=== PATIENT | female | born 1995 | race Caucasian/White ===

== ENCOUNTER 2016-10-22 11:16 | Emergency (ER) | payer OTHER ==
[~2016-10-22] VITALS: Ht 172.7 cm; Wt 81.8 kg
[2016-10-22 11:19] VITALS: TEMP 97.4
[2016-10-22] MEDS ORDERED: SYNTHROID0.075 MG/T PO (11:38)
[2016-10-22] MEDS ORDERED: NOVLOG (11:38)
[2016-10-22] MEDS ORDERED: GLUCOPHAGE XR750 MG PO (11:38)
[2016-10-22 12:15] LABS: BASO # 0.1 (0.0-0.2); EOS # 0.2 (0.0-0.7); EOS % 2.3 % (0-4.0); GRAN # 5.2 (1.4-6.5); HEMATOCRIT 43.1 % (37.0-47.0); HEMOGLOBIN 14.5 g/dl (12.5-16.0); LYMPH # 1.9 (1.2-3.4); LYMPH % 23.6 % (20.0-51.0); MEAN CELL VOLUME 84 fl (80.0-100.0); MEAN CORPUSCULAR HEMOGLOBIN 28 pg (27.0-31.0); MEAN CORPUSCULAR HGB CONC 34 g/dl (33.0-37.0); MEAN PLATELET VOLUME 10.5 fl (7.4-10.4); MONO # 0.8 (0.1-0.6); MONO % 9.4 % (1.7-9.3); PLATELET COUNT 332 K/mm3 (130-400); RED BLOOD COUNT 5.13 M/mm3 (4.10-5.30); REDCELL DISTRIBUTION WIDTH-CV 13.6 % (11.5-14.5); WHITE BLOOD COUNT 8.2 K/mm3 (4.8-10.8)
[2016-10-22 12:30] LABS: ADJUSTED CALCIUM 9.2 mg/dL (8.4-10.2); ALBUMIN 4.2 gm/dL (3.5-5.0); BILIRUBIN,TOTAL 0.7 mg/dL (0.0-1.0); CALCIUM 9.4 mg/dL (8.4-10.2); CREATININE, serum 0.61 mg/dL (0.52-1.25); POTASSIUM 3.9 mmol/L (3.4-5.0); TOTAL PROTEIN 7.6 gm/dL (6.4-8.2)
[2016-10-22 14:41] VITALS: BP 134/89; PULSE 82
== END 2016-10-22 14:42 | disposition home or self-care (01) ==
LOC: COL.ER 11:16
PROVIDERS: Emergency Medicine
DX: R42 Dizziness and giddiness (principal); E10.9 Type 1 diabetes mellitus without complications; Z79.4 Long term (current) use of insulin
CPT/HCPCS: J7030

== ENCOUNTER → 2016-10-23 | Outpatient (CLI) | payer OTHER ==
[~2016-10-23] MED LIST: GLUCOPHAGE XR750 MG PO; NOVLOG; SYNTHROID0.075 MG/T PO; [UNRECOGNIZED DRUG - SUPPLY]
== END ==
LOC: COL.LAB 07:39
DX: Z01.89 Encounter for other specified special examinations (principal)

== ENCOUNTER 2016-11-14 00:47 | Emergency (ER) | payer OTHER ==
[~2016-11-14] VITALS: Ht 175.3 cm; Wt 80.5 kg
[~2016-11-14 00:47] MED LIST changes: -[UNRECOGNIZED DRUG - SUPPLY]
[2016-11-14 00:56] VITALS: TEMP 97.7
[2016-11-14 02:01] VITALS: BP 124/92; PULSE 70
[2016-11-14] MEDS ORDERED: [UNRECOGNIZED DRUG - SUPPLY] (02:04)
== END 2016-11-14 02:05 | disposition home or self-care (01) ==
LOC: COL.ER 00:47
DX: R20.2 Paresthesia of skin (principal); R42 Dizziness and giddiness; E11.9 Type 2 diabetes mellitus without complications; E03.9 Hypothyroidism, unspecified; E28.2 Polycystic ovarian syndrome; Z96.41 Presence of insulin pump (external) (internal)

== ENCOUNTER → 2016-11-23 | Outpatient (CLI) | payer OTHER ==
[~2016-11-23] MED LIST changes: +[UNRECOGNIZED DRUG - SUPPLY]
== END ==
LOC: COL.RAD 07:30
DX: K76.0 Fatty (change of) liver, not elsewhere classified (principal); R16.0 Hepatomegaly, not elsewhere classified

== ENCOUNTER → 2016-12-02 | Outpatient (CLI) | payer OTHER | LOC: COL.RAD 08:10 | DX: R10.11 Right upper quadrant pain (principal) | CPT/HCPCS: A9537 ==

== ENCOUNTER 2016-12-12 13:24 | Emergency (ER) | payer OTHER ==
[~2016-12-12] VITALS: Ht 175.3 cm; Wt 79.5 kg
[2016-12-12 13:44] VITALS: BP 144/92; PULSE 69; TEMP 98
== END 2016-12-12 14:56 | disposition home or self-care (01) ==
LOC: COL.ER 13:24
DX: G43.809 Other migraine, not intractable, without status migrainosus (principal); R42 Dizziness and giddiness; E10.9 Type 1 diabetes mellitus without complications; Z79.84 Long term (current) use of oral hypoglycemic drugs; Z79.4 Long term (current) use of insulin

== ENCOUNTER → 2017-04-20 | Outpatient (CLI) | payer OTHER | LOC: COL.PUL 04-07 10:00 | DX: R06.02 Shortness of breath (principal) | CPT/HCPCS: J7674 ==

== ENCOUNTER 2017-05-24 00:26 | Emergency (ER) | payer OTHER ==
[~2017-05-24] VITALS: Ht 243.8 cm; Wt 81.8 kg
[2017-05-24 00:31] VITALS: TEMP 98
[2017-05-24] MEDS ORDERED: FORTAMET500 M1 PO (00:38)
[2017-05-24] MEDS ORDERED: RT ADVAIR HFA 1112 G IH (00:39)
[2017-05-24] MEDS ORDERED: FLAGYL500 MG PO (00:40)
[2017-05-24] MEDS ORDERED: NORGESTIMATE AN1 TAB PO (00:41)
[2017-05-24] MEDS ORDERED: ANTIVERT 25MG25 MG PO (00:41)
[2017-05-24 02:43] LABS: BASO # 0.1 (0.0-0.2); BASO % 0.9 % (0.0-2.0); EOS # 0.2 (0.0-0.7); EOS % 2.2 % (0-4.0); GRAN % 55.4 % (42.2-75.2); HEMATOCRIT 40.2 % (37.0-47.0); HEMOGLOBIN 13.6 g/dl (12.5-16.0); LYMPH # 2.8 (1.2-3.4); LYMPH % 31.3 % (20.0-51.0); MEAN CELL VOLUME 89 fl (80.0-100.0); MEAN CORPUSCULAR HEMOGLOBIN 30 pg (27.0-31.0); MEAN CORPUSCULAR HGB CONC 34 g/dl (33.0-37.0); MEAN PLATELET VOLUME 10.4 fl (7.4-10.4); MONO # 0.9 (0.1-0.6); MONO % 9.6 % (1.7-9.3); PLATELET COUNT 318 K/mm3 (130-400); RED BLOOD COUNT 4.52 M/mm3 (4.10-5.30); REDCELL DISTRIBUTION WIDTH-CV 12.7 % (11.5-14.5)
[2017-05-24 02:52] LABS: ALBUMIN 4.1 gm/dL (3.5-5.0); BILIRUBIN,TOTAL 0.3 mg/dL (0.0-1.0); CALCIUM 9.2 mg/dL (8.4-10.2); CREATININE, serum 0.7 mg/dL (0.52-1.25); POTASSIUM 3.9 mmol/L (3.4-5.0); TOTAL PROTEIN 7.2 gm/dL (6.4-8.2)
[2017-05-24 03:22] LABS: THYROID STIMULATING HORMONE 3.43 uIU/mL (0.465-4.680)
[2017-05-24] MEDS ORDERED: PRILOSEC 20MG20 MG PO (03:22)
[2017-05-24] MEDS ORDERED: CARAFATE S1 GM/10 ML PO (03:22)
[2017-05-24 04:00] LABS: TROPONIN-I < 0.012 ng/mL (0.000-0.034)
[2017-05-24 05:42] VITALS: BP 124/87; PULSE 68
== END 2017-05-24 05:42 | disposition home or self-care (01) ==
LOC: COL.ER 00:26
PROVIDERS: Emergency Medicine; Nurse Practitioner
DX: R42 Dizziness and giddiness (principal); R07.89 Other chest pain; E10.9 Type 1 diabetes mellitus without complications; E07.9 Disorder of thyroid, unspecified; Z96.41 Presence of insulin pump (external) (internal)
CPT/HCPCS: J1885; J2060; J7030

== ENCOUNTER → 2017-11-02 | Outpatient (CLI) | payer OTHER ==
[~2017-11-02] MED LIST changes: +ANTIVERT 25MG25 MG PO; +CARAFATE S1 GM/10 ML PO; +FLAGYL500 MG PO; +FORTAMET500 M1 PO; +NORGESTIMATE AN1 TAB PO; +PRILOSEC 20MG20 MG PO; +RT ADVAIR HFA 1112 G IH
== END ==
LOC: COL.CARD 10-30 08:00
DX: R42 Dizziness and giddiness (principal); R55 Syncope and collapse